=== PATIENT | female | born 1930 | race Caucasian/White ===

== ENCOUNTER 2019-07-23 11:29 | Emergency (ER) | payer MEDICARE ==
[~2019-07-23] VITALS: Ht 165.1 cm; Wt 68.2 kg
[2019-07-23 12:04] LABS: BASOPHILS # (AUTO) 0.1 X10'3 (0-0.2); BASOPHILS % (AUTO) 0.9 % (0-1); EOSINOPHILS # (AUTO) 0.4 X10'3 (0-0.9); HEMATOCRIT 34.4 % (35.0-45.0); HEMOGLOBIN 11.8 g/dl (12.0-16.0); LYMPHOCYTES # (AUTO) 1.6 X10'3 (1.1-4.8); MEAN CORPUSCULAR HEMOGLOBIN 32.4 PG (27.0-31.0); MEAN CORPUSCULAR HGB CONC 34.4 g/dL (33.0-36.5); MEAN PLATELET VOLUME 8.4 FL (7.4-10.4); MONOCYTES # (AUTO) 0.5 X10'3 (0-0.9); MONOCYTES % (AUTO) 8.1 % (2-12); PLATELET COUNT 153 X10'3 (140-440); RED BLOOD COUNT 3.65 X10'6 (4.20-5.60); RED CELL DISTRIBUTION WIDTH 14.6 % (11.5-14.5); WHITE BLOOD COUNT 6.6 X10'3 (4.5-11.0)
[2019-07-23 12:17] LABS: ALANINE AMINOTRANSFERASE 19 U/L (12-78); ALBUMIN 2.9 G/DL (3.4-5.0); ALBUMIN/GLOBULIN RATIO 0.8 (1.1-1.5); ALKALINE PHOSPHATASE 54 IU/L (46-116); ANION GAP 7 (8-16); ASPARTATE AMINO TRANSFERASE 17 U/L (10-37); BILIRUBIN,TOTAL 0.5 MG/DL (0.1-1.0); BLOOD UREA NITROGEN 27 MG/DL (7-18); BUN/CREATININE RATIO 32.1 (6.6-38.0); CHLORIDE 106 MMOL/L (99-107); CREATININE 0.84 MG/DL (0.40-0.90); GLUCOSE 110 MG/DL (70-104); POTASSIUM 4.3 MMOL/L (3.5-5.1); SODIUM 140 MMOL/L (135-145); TOTAL CARBON DIOXIDE 27.2 MMOL/L (24-32); TOTAL PROTEIN 6.4 G/DL (6.4-8.2); eGFR 64 ML/MIN
[2019-07-23 12:25] LABS: PARTIAL THROMBOPLASTIN TIME 30 SECONDS (22-32)
[2019-07-23] MEDS ORDERED: normal saline 1000ML IV soln IVB ONE (12:25)
[2019-07-23 14:07] VITALS: BP 119/63
== END 2019-07-23 14:09 | disposition home or self-care (01) ==
LOC: ER 11:30
DX: E86.0 Dehydration (principal); R06.00 Dyspnea, unspecified; R00.0 Tachycardia, unspecified; I48.91 Unspecified atrial fibrillation; Z95.0 Presence of cardiac pacemaker; Z88.8 Allergy status to other drugs, medicaments and biological substances
CPT/HCPCS: 36415; 71045; 80053; 83880; 84484; 85025; 85610; 85730; 93005; 99284; J7040

== ENCOUNTER 2020-09-09 12:33 | Outpatient (CLI) | payer MEDICARE ==
[2020-09-09 13:05] LABS: TOTAL HEMOGLOBIN 15.5 G/dl (12.0-16.0)
[2020-09-09] MEDS ORDERED: albuterol 2.5 MG/3 ML nebule ONE (13:44)
[2020-09-09] MEDS ORDERED: albuterol 2.5 MG/3 ML nebule NEB ONE (13:50)
== END 2020-09-09 23:59 | disposition home or self-care (01) ==
LOC: RT 12:33
PROVIDERS: ATTEND Internal Medicine Pulmonary Disease
DX: R94.2 Abnormal results of pulmonary function studies (principal); J45.998 Other asthma
CPT/HCPCS: 85018; 94060; 94727; 94729; 94760